=== PATIENT | male | born 1965 | race Caucasian/White ===

== ENCOUNTER 2016-06-05 22:39 | Emergency (ER) | payer BC ==
[2016-06-05] MEDS: Sodium Chloride 0.9% 1,000 ML PRIMARY IV ONE (22:39)
[2016-06-05 22:52] LABS: BASOPHILS # (AUTO) 0.02 10*3/UL; BASOPHILS % (AUTO) 0.2 % (0-1); HEMATOCRIT 47.1 % (42.0-52.0); HEMOGLOBIN 16.8 g/dL (14.0-18.0); IMM GRAN % (AUTO) 0.3 % (0-5); IMM GRAN# (AUTO) 0.03 10*3/UL; LYMPHOCYTES # (AUTO) 0.95 10*3/uL; LYMPHOCYTES % (AUTO) 9.3 % (10-50); MEAN CORPUSCULAR HEMOGLOBIN 29.7 PG (27-31); MEAN CORPUSCULAR HGB CONC 35.7 g/dL (33-37); MEAN PLATELET VOLUME 11.4 FL (7.4-12.2); MONOCYTES # (AUTO) 0.77 10*3/UL (0.3-0.8); MONOCYTES % (AUTO) 7.5 % (5-15); NEUTROPHILS # (AUTO) 7.93 10*3/UL; NEUTROPHILS % (AUTO) 77.7 % (50-80); PLATELET MORPHOLOGY COMMENT NORMAL MORPHOLOGY (NORM); RDW COEFFICIENT OF VARIATION 13.4 % (11.5-14.5); RED BLOOD COUNT 5.66 10^6/uL (4.70-6.10); WHITE BLOOD COUNT 10.21 10^3/uL (4.8-10.8)
--- NOTE | 2016-06-05 22:53 | PDOC ---
Syncope/Near-Syncope HPI - General Chief Complaint: Nausea / Vomiting / Diarrhea Stated Complaint: Nausea/vomitting, possible syncope Date Seen by Provider: 06/05/16 Time Seen by Provider: 22:45 Source: POSITIVE: Patient, EMS Exam Limitations: POSITIVE: No limitations Nurse's Notes Reviewed & Considered: Yes EMS Report Reviewed & Considered: Verbal - History of Present Illness Initial Comments: The patient comes in today syncopal episode. Patient was at the [employer] and in [facility] and had a block at the game after the game he had a frozen yogurt. He denies any alcohol today. In route home he was feeling unwell [place] he developed nausea and one episode of emesis. He laid down in the back seat of the truck and slept for an hour. They arrived at the [facility] area where he became acutely nauseous. He opened the door of the truck, became stiff and fell forward on his face. He does not remember this episode but his states that he was unresponsive and vomiting while on the ground. EMS was called and arrived he had one episode of emesis in route. During that episode of emesis he states he may have had a small bowel movement. Since his last episode of emesis he feels significantly better and is alert and oriented to person place and time. He denies any fever or chills or sweats , no chest pain shortness of breath or cough. Denies any diarrhea. Denies any hematuria or dysuria. He states that he had very little fluids to drink today. 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 He denies any history of heart problems, diabetes, or high blood pressure. He does have a history of reactive airway disease. Body Location Affected: REPORTS: Head Timing: REPORTS: Abrupt Duration: 1/2 hour Severity: Mild Quality: REPORTS: Cramping Episode Began at:: 21:35 Witnessed? 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) Associated Symptoms: REPORTS: Nausea, Vomiting, Weakness Recently seen/treated/hospitalized: No Any Prior Injuries Related to Current Complaint?: No - Patient Allergies Allergies/Adverse Reactions: Allergies Allergy/AdvReac Type Severity Reaction Status Date / Time No Known Allergies Allergy Verified 06/05/16 23:13 ROS - Limitations ROS Limitations: No Limitations Constitution: REPORTS: Chills Cardiovascular: REPORTS: Denies Cardiac Symptoms Respiratory: REPORTS: Denies Resp Symptoms Neurological: REPORTS: Other (Syncopal episode) Gastrointestinal: REPORTS: Nausea, Vomitting Endocrine: REPORTS: Denies Symptoms Musculoskeletal: REPORTS: Denies MS Symptoms Genitourinary: REPORTS: Denies Symptoms Eyes: REPORTS: Denies Symptoms ENT: REPORTS: Denies Symptoms Skin: REPORTS: Denies Skin Symptoms Lympathic: REPORTS: Denies Lympathic Symptoms Immunologic: POSITIVE: Denies Symptoms Psychiatric: POSITIVE: Denies Psych Symptoms Syncope / Near-Syncope Exam - General Appearance General Appearance: POSITIVE: Alert, Cooperative, No Acute Distress - HEENT HEENT: POSITIVE: Eyes Inspection Nml, Ears Inspection Nml, Nose Inspection Nml, Oral/Dental Inspect. Nml, Pharynx Inspect. Nml, PERRL, EOMI, Other (Small bruise right lateral orbital ridge.) - Pupil Size Pupil Size: 4 mm: Bilateral - Neck / Back Neck/Back: POSITIVE: Supple, Non-Tender - Respiratory Respiratory: POSITIVE: No Respiratoy Distress, Breath Sounds Normal, No Pleuritic Chest Pain - Cardiovascular Cardiovascular: POSITIVE: Regular Rate and Rhythm, Heart Sounds Normal - Abdomen Abdomen: Soft: (All Quadrants), Normal Bowel Sounds: (All Quadrants), Denies Tenderness: (All Quadrants) - Skin Skin: POSITIVE: Intact, Normal For Race, Warm, Dry, No Rash - Extremities Extremity: Non-Tender: (All Extremities), Normal ROM: (All Extremities), Normal Inspection: (All Extremities) - Neuro / Psych Higher Functions: POSITIVE: Oriented to Person, Oriented to Place, Oriented to Time, Normal Speech, Normal Cognition, Appropriate Mood, Appropriate Affect Cranial Nerves: POSITIVE: Normal As Tested, No Evidence of Acute CVA Cerebellar: POSITIVE: Normal As Tested Sensorimotor: POSITIVE: No Motor Deficits, No Sensory Deficits, Reflexes Normal Reflexes: Patellar (R): 3+, Patellar (L): 3+, Radial (R): 3+, Radial (L): 3+ Syncope/Near-Syncope Progress - Results Reviewed by me Xrays/CTs/US Reviewed by me: Yes Discussed with Radiologist: Yes Lab Results Reviewed: Yes Lab Results:: Laboratory Results 06/05/16 06/06/16 Range/Units 22:40 00:00 WBC 10.21 (4.8-10.8) 10^3/uL RBC 5.66 (4.70-6.10) 10^6/uL Hgb 16.8 (14.0-18.0) g/dL Hct 47.1 (42.0-52.0) % MCV 83.2 (80-90) FL MCH 29.7 (27-31) PG MCHC 35.7 (33-37) g/dL RDW Std Deviation 40.6 (39-50) fL RDW Coeff of Anthony 13.4 (11.5-14.5) % Plt Count 171 (140-350) 10*3/uL MPV 11.4 (7.4-12.2) FL Immature Gran % (Auto) 0.3 (0-5) % Neut % (Auto) 77.7 (50-80) % Lymph % (Auto) 9.3 L (10-50) % [place] % (Auto) 7.5 (5-15) % Eos % (Auto) 5.0 (0-8) % Baso % (Auto) 0.2 (0-1) % Immature Gran # (Auto) 0.03 10*3/UL Neut # (Auto) 7.93 10*3/UL Lymph # (Auto) 0.95 10*3/uL [place] # (Auto) 0.77 (0.3-0.8) 10*3/UL Eos # (Auto) 0.51 10*3/UL Baso # (Auto) 0.02 10*3/UL WBC Morphology Comment Normal morphology (NORM) Plt Morphology Comment Normal morphology (NORM) RBC Morph Comment Normal morphology (NORM) Sodium 142 (135-145) meq/L Potassium 4.1 (3.8-5.2) meq/L Chloride 104 (98-112) meq/L Carbon Dioxide 24 (23-33) meq/L Anion Gap 14 (5-20) BUN 22 (7-22) mg/dL Creatinine 1.0 (0.70-1.50) mg/dL Estimated GFR > 60 (>60 ml/min/1.73m(2)) BUN/Creatinine Ratio 22.00 H (6-20) Glucose 150 H (78-110) mg/dL Calculated Osmolality 299.0 H (267-292) mOsm/kg Calcium 8.8 (8.7-10.7) mg/dL Magnesium 1.9 (1.6-2.4) mg/dL Total Bilirubin 1.1 (0.3-1.2) mg/dL AST 35 (21-57) IU/L ALT 51 (21-72) IU/L Alkaline Phosphatase 84 (38-126) IU/L Total Protein 7.5 (6.1-8.0) g/dL Albumin 4.3 (3.5-4.8) g/dL Globulin 3.2 (2.50-4.10) g/dL Albumin/Globulin Ratio 1.30 (1.3-2.0) mg/g TSH 2.29 (0.2700-4.2000) uIU/mL Ur Collection Type Clean catch urine Urine Color Yellow Urine Clarity Clear (CLEAR) Urine pH 5.5 (5.0-8.5) Ur Specific [place] 1.028 (1.005-1.030) U Specif Grav (Refrac) 1.028 Urine Protein 30 (NEG) mg/dl Urine Glucose (UA) Negative (NEG) mg/dL Urine Ketones Negative (NEG) Urine Occult Blood Negative (NEG) Urine Nitrate Negative (NEG) Urine Bilirubin Negative (NEG) Urine Urobilinogen 0.2 (0.2) EU/dL Ur Leukocyte Esterase Negative (NEG) Urine RBC None (NONE) /hpf Urine WBC None (NONE) Ur Squamous Epith Cells Few (NONE) Ur Renal Epithelial Cell None (NONE) Urine Crystals None Urine Bacteria Rare (NONE) Urine Casts None (NONE) Urine Mucus Few (NONE) Urine Trichomonas None (NONE) Urine Yeast None (NONE) Ur Culture Indicated? Culture not set EKG Interpretation:: POSITIVE: Normal Sinus Rhythm - Patient's Progress Pain Medication Addressed: POSITIVE: Not Applicable Re-examine Time: 00:35 Status: POSITIVE: Improved MDM / ED Course: Pt brought to the ED and examined, had sent to lab for studies, CT scan of his head obtained. Patient had warm bags of saline placed in his axilla and warm blankets placed over him. He had no further episodes of emesis here in the emergency department. He received 2 L of normal saline, Zofran. Findings: CT scan of his head is negative for acute intracranial abnormalities. Laboratory findings are unremarkable. Assessment: Syncope most likely vasovagal. Plan: Discharge home follow up with his primary care physician Dr. Chava Garcia. CVA/Syncope Quality Measure Initiative: POSITIVE: EKG, NIH Stroke Scale (0 on NIH) - Consult Counseled: POSITIVE: Patient, Family, RE: Lab Results, RE: Radiology Results, RE : DX Patient Care Time - Estimated PCT Patient Care Time (In Minutes): 45 Vital Signs - VS Reviewed Vital Signs Reviewed: Yes Discharge Clinical Impression: Nausea and vomiting, Syncope Discharge Disposition: Discharged to Home Condition: Stable Patient Instructions Given at Discharge: Acute Nausea and Vomiting (ED), Syncope (ED)
[2016-06-05 23:01] LABS: ASPARTATE AMINO TRANSFERASE 35 IU/L (21-57); BILIRUBIN,TOTAL 1.1 mg/dL (0.3-1.2); BLOOD UREA NITROGEN 22 mg/dL (7-22); CALCIUM 8.8 mg/dL (8.7-10.7); CHLORIDE 104 meq/L (98-112); EST GLOMERULAR FILTRATION > 60 (>60 ml/min/1.73m(2)); GLUCOSE 150 mg/dL (78-110); MAGNESIUM 1.9 mg/dL (1.6-2.4); POTASSIUM 4.1 meq/L (3.8-5.2); SODIUM 142 meq/L (135-145); TOTAL PROTEIN 7.5 g/dL (6.1-8.0)
[2016-06-05] MEDS ORDERED: ONDANSETRON 4 MG/2 ML VIAL ONE (23:20)
[2016-06-06] MEDS: Lactated Ringers 1,000 ML PRIMARY IV ONE (00:01)
[2016-06-06 00:18] LABS: BILIRUBIN,URINE NEGATIVE (NEG); CLARITY,URINE CLEAR (CLEAR); GLUCOSE, URINE (UA) NEGATIVE (NEG); LEUKOCYTE ESTERASE ,URINE NEGATIVE (NEG); NITRATE,URINE NEGATIVE (NEG); OCCULT BLOOD,URINE NEGATIVE (NEG); PH,URINE 5.5 (5.0-8.5); PROTEIN,URINE 30 mg/dl (NEG); UROBILINOGEN,URINE 0.2 EU/dL (0.2)
[2016-06-06 00:19] LABS: URINE SAMPLE TYPE CLEAN CATCH URINE
[2016-06-06 00:20] LABS: BACTERIA,URINE RARE; SQUAMOUS EPITHELIAL CELL,UR FEW; URINE SPECIFIC GRAVITY - MAN 1.028
--- NOTE | 2016-06-06 00:20 | DI ---
HISTORY: Syncope. TECHNIQUE: Contiguous axial images of the brain were obtained and submitted for interpretation. FINDINGS: No acute intracranial hemorrhage. No mass effect or midline shift. The ventricles, sulci , and cisterns are within normal limits for age. The lynch-white matter differentiation is preserved with no evidence of acute infarct. No aggressive osseous lesion or depressed skull fracture. There is evidence of prior functional endo scopic sinus surgery with pansinus mucosal thickening and an air fluid level with frothy secretions i n the left sphenoid sinus. The mastoid air cells are clear. Vascular structures are intact. Orbits an d facial soft tissues are unremarkable. IMPRESSION: 1. No acute intracranial findings. 2. [id number] sinus disease.
[2016-06-06] MEDS: Ondansetron ODT Tab 4 MG TAB PO SCH (01:06)
[2016-06-06 03:51] VITALS: RESP 16; TEMP 97.8
== END 2016-06-06 01:20 | disposition home or self-care (01) ==
LOC: ER 22:39
DX: R55 Syncope and collapse (principal); R11.2 Nausea with vomiting, unspecified; R51 Headache; S00.11XA Contusion of right eyelid and periocular area, initial encounter
CPT/HCPCS: 70450; 80053; 81001; 81003; 83735; 84443; 85025; 96360; 96361; 99283; J2405; J7120